=== PATIENT | male | born 1950 | race Caucasian/White ===

== ENCOUNTER 2016-09-22 18:24 | Observation (INO) | payer MEDICARE, OTHER ==
[~2016-09-22] VITALS: Ht 172.7 cm; Wt 97.1 kg
[2016-09-22 18:26] VITALS: BP 150/78; PULSE 126; RESP 12; O2SAT 100
[2016-09-22] MEDS ORDERED: ASPI-973 PO (18:43)
[2016-09-22] MEDS ORDERED: NIFE60TA18 PO (18:43)
[2016-09-22] MEDS ORDERED: DOCU240C41 PO (18:43)
[2016-09-22] MEDS ORDERED: CYCL10TA9 PO (18:43)
--- NOTE | 2016-09-22 18:46 | ED.REPORT ---
HPI-Chest Pain 40 and Over Date of Service Sep 22, 2016 ED Provider: Marisela Johnson MD Pt is a 65 y/o male w/ a hx of hypertension, DM, hyperlipidemia, presenting to the ED with his daughter c/o left-sided CP onset this morning. The patient woke up this morning with chills and diaphoresis and throughout the day began experiencing intermittent episodes of mild upper left chest pain and profound generalized weakness. He had a similar episode 2 weeks ago and saw his PCP who ordered a stress test which is scheduled for next week. He denies peripheral edema, SOB, cough, fever, nasal congestion, nausea, vomiting. He has never had an TX and does not smoke. He is not anticoagulated and takes ASA daily. Nursing Notes Stated Complaint: CHEST PAIN Chief Complaint: Chest Pain Nursing Notes Reviewed: Yes Allergies: Coded Allergies: No Known Allergies (Unverified , 09/22/16) Scheduled Aspirin (Aspirin) 81 Mg Tablet 81 MG PO DAILY Atorvastatin (Lipitor) 40 Mg Tablet 40 MG PO HS Canagliflozin (Invokana) 100 Mg Tablet 100 MG PO HS Docusate Calcium (Stool Softener) 240 Mg Capsule 240 MG PO BID Fenofibrate (Lofibra) 160 Mg Tablet 160 MG PO DAILY Lisinopril (Lisinopril) 40 Mg Tablet 80 MG PO DAILY Loratadine (Claritin) 10 Mg Capsule 10 MG PO DAILY Metformin (Metformin) 850 Mg Tablet 850 MG PO TID Naproxen Na-Diphenhydramin HCl (Aleve Pm Caplet) 220 Mg-25 Mg Tablet 2 EACH PO DAILY Nifedipine (Afeditab Cr) 60 Mg Tablet.er 120 MG PO DAILY [place]-3 Fatty Acids (Fish Oil) 500 Mg Capsule.dr 1,200 MG PO DAILY Oxycodone ER (Oxycontin) 20 Mg Tab.er.12h 20 MG PO BID Sennosides (Senna) 8.6 Mg Tablet 8.6 MG PO DAILY Scheduled PRN Cyclobenzaprine (Cyclobenzaprine) 10 Mg Tablet 10 MG PO HS PRN PRN Spasm Fluticasone Propionate (Flonase Allergy Relief) 50 Mcg/Actuation [place].susp 9.9 ML NS DAILY PRN PRN For Congestion oxyCODONE-Acetaminophen 10-325 mg (oxyCODONE-Acetaminophen 10-325 mg) 1 Each Tablet 1 TABLET PO Q8H PRN PRN For Pain General Time Seen by MD: 18:43 Chief Complaint Chest pain Hx Obtained From: Patient Arrived By: Walk-in Sudden in Onset?: No Onset Occurred: 9 - 12 hours ago Symptom Duration: Intermittent Location: : Chest left Quality: Painful Severity: Current: No pain currently Severity: Maximum: Moderate Past Medical History Past Medical History Hypertension Type II Diabetes Hyperlipidemia Chronic joint and back pain Past Surgical History Appendectomy Smoking History Never Smoker Ambulatory Status Independent Review of Systems Constitutional: Reports: Weakness - generalized, Denies: Chills, Fever Respiratory: Denies: Non-productive cough, Shortness of breath Cardiovascular: Reports: Chest pain, Denies: Edema GI: Denies: Abdominal pain, Nausea, Vomiting Musculoskeletal: Denies: Extremity swelling Complete sys rev & neg: except as marked. Ears / Nose / Throat: Denies: Nasal congestion Physical Exam Initial Vital Signs Vital Signs (First) Date Time Temp Pulse Resp B/P Pulse Ox O2 Delivery O2 Flow Rate FiO2 09/22/16 18:26 36.7 126 12 150/78 100 Initial VS: Reviewed, Vital signs abnormal Head / Eyes: Atraumatic, Normocephalic, PERRL ENT: Mucous membranes moist, Conjunctiva normal, No scleral icterus Neck: Supple, Full range of motion Extremities: Vascular intact, Neuro intact, No swelling, No tenderness Neurologic: Alert, Oriented, Nonfocal Psychiatric: Mood/affect normal, Behavior normal, Normal thought content General/Constitutional: Awake, Alert, No acute distress, Cooperative, Not toxic appearing Respiratory / Chest: Atraumatic, Breath sounds NL, Breath sounds = bilat, No respiratory distress, No rales, No rhonchi, No wheezing, No retractions, No stridor, No chest tenderness, No chest wall deformity, No crepitus Pain is not reproducible Cardiovascular: Regular rhythm, Heart sounds NL, No gallop, No murmurs, No rubs , Cap refill not delayed, Peripheral circulation NL Heart Rate / Rhythm: Positive: Tachycardia Abdomen: Atraumatic, No guarding, No rebound, No distention, No palpable mass Skin: Atraumatic, Color NL, No rash, Warm Color / Condition: Positive: Diaphoresis present Interpretation & Diagnostics Lab Results Interpretation Result Diagram: 09/22/16 1840 09/22/16 1840 Test 09/22/16 18:40 09/22/16 20:35 White Blood Count 16.3th/mm3 (3.8-10.1) Red Blood Count 4.77mil/mm3 (4.40-5.80) Hemoglobin 12.3g/dL (13.8-17.2) Hematocrit 38.2% (41.0-50.0) Mean Corpuscular Volume 80.1fL (81-100) Mean Corpuscular Hemoglobin 25.8pg (27.0-35.0) Mean Corpuscular Hemoglobin Concent 32.2% (32.0-37.0) Red Cell Distribution Width 14.0% (12.3-15.4) Platelet Count 561bil/L (150-400) Neutrophils (%) (Auto) 90.3% (40-74) Lymphocytes (%) (Auto) 6.7% (14-46) Monocytes (%) (Auto) 2.5% (4-12) Eosinophils (%) (Auto) 0.1% (0-5) Basophils (%) (Auto) 0.1% (0-3) Sodium Level 137mEq/L (134-144) Potassium Level 3.9mEq/L (3.5-5.2) Chloride Level 97mEq/L (97-108) Carbon Dioxide Level 20mmol/L (18-29) Blood Urea Nitrogen 60mg/dL (8-27) Creatinine 1.30mg/dL (0.76-1.27) Estimat Glomerular Filtration Rate 59mL/min (>59) Glucose Level 212mg/dL (60-99) Calcium Level 9.2mg/dL (8.5-10.1) Magnesium Level 2.0mg/dL (1.6-2.6) Total Bilirubin 0.4mg/dL (0.0-1.2) Aspartate Amino Transf (AST/SGOT) 10U/L (0-50) Alanine Aminotransferase (ALT/SGPT) 9U/L (0-44) Alkaline Phosphatase 24U/L (25-160) Troponin T < 0.010ug/L (0.0-0.011) Total Protein 6.3g/dL (6.4-8.4) Albumin 3.9g/dL (3.4-5.0) Hold Lane Top Tube Received (Received) Urine Color Yellow (YELLOW) Urine Appearance Clear (CLEAR,HAZY) Urine pH 5.5 (5.0-8.0) Urine Specific Raymond 1.010 (1.003-1.035) Urine Protein Negativemg/dL (NEG,TRACE) Urine Glucose (UA) >1000mg/dL (NEGATIVE) Urine Ketones Tracemg/dL (NEGATIVE) Urine Occult Blood Negative (NEGATIVE) Urine Nitrite Negative (NEGATIVE) Urine Bilirubin Negative (NEGATIVE) Urine Urobilinogen Normalmg/dL (NORMAL) Urine Leukocyte Esterase Negative (NEGATIVE) Urine RBC 0-2/hpf (0-2) Urine WBC 0-5/hpf (0-5) Urine Epithelial Cells Occasional/hpf (NONE-MOD) Urine Crystals None seen (NONE SEEN) Urine Bacteria None/hpf (NONE-FEW) Urine Hyaline Casts None/lpf (NONE) Urine Granular Casts None seen (NONE SEEN) Urine Waxy Casts None seen (NONE SEEN) Urine Red Blood Cell Casts None seen (NONE SEEN) Urine White Blood Cell Casts None seen (NONE SEEN) Urine Mucus None seen (None Seen) Urine Trichomonas None seen (NONE SEEN) Urine Yeast None (NONE SEEN) Urine Culture Reflexed Not indicated Hold Urine Received (Received) ECG Interpretation ECG Interpretation: Sinus tachycardia rate [address] elevated in AvR, 2 boxes without reciprocal depression Time: 18:52 Interpreted by: ED physician Normal ECG Interpretation: No acute ischemic changes X-Ray Chest Interpretation Chest Xray Interpretation: IMPRESSION: No acute disease Dictated by: Yoni Gutiérrez M.D. on 09/22/2016 at 18:54 Approved by: Yoni Gutiérrez M.D. on 09/22/2016 at 18:55 View: Portable, 1 view Interpretation / Wet Read by: Interpret - Radiologist CT Chest Interpretation IMPRESSION: No pulmonary embolism. No acute consolidation Dictated by: Yoni Gutiérrez M.D. on 09/22/2016 at 21:05 Approved by: Yoni Gutiérrez M.D. on 09/22/2016 at 21:08 Study type: CT pulm angiogram Interpretation / Wet Read by: Interpret - Radiologist Re-Eval/Medical Decision Med Decision/Clinical Course 65-year-old male with past medical history of hypertension, diabetes, hyperlipidemia here with chest pain which is now resolved. Patient is tachycardic in the emergency department. Differential diagnosis includes but is not limited to ACS versus pneumonia versus PE versus pleural effusion. PE study is negative for pulmonary embolism. His tachycardia has improved somewhat with a small bolus of fluids. His labs are remarkable for mild anemia , though I do not think this is the cause of his chest pain or tachycardia. He does have a leukocytosis of 16,000 of unknown etiology. He does not have evidence of urinary tract infection. He does not have any evidence of pneumonia on chest x-ray. Given his multiple risk factors for ACS, I have admitted him to the hospital. His EKG does not show any evidence of acute ST elevation at this time. Time of Eval: 21:15 Re-Evaluation/Progress Note: Pt rechecked. Informed pt of need for admission for further cardiac workup. Pt understands and agrees with plan for admission. All questions addressed. Consultation : Referral / Consult Name: Vazquze Duval MD Consulted With: Hospitalist Call Returned at: 21:19 Business Process Engineer: Will see patient, Agrees with eval, Agrees with plan, Accepts admit Counseled Regarding: Diagnosis, Lab results, Need for admission Discharge & Departure Primary Impression: Chest pain Chest pain type: unspecified Qualified Code: R07.9 - Chest pain, unspecified Disposition: ADMITTED TO HOSPITAL Discharge Condition All VS Reviewed: Yes Condition: Stable Referrals: HARISH GUNDERSON (Family) Damion Attestation Portions of this note were transcribed by Phani Aguila. I, Dr. Johnson, personally performed the history, physical exam and medical decision-making; I reviewed and confirmed the accuracy of the information in the transcribed note. Signed by Damion Pantoja, 09/22/161944 copies to: HARISH GUNDERSON Rebecca A MD Sep 22, 2016 18:46 PHANI AGUILA Sep 22, 2016 18:53
[2016-09-22 18:48] LABS: BASOPHILS % (AUTO) 0.1 % (0-3); EOSINOPHILS % (AUTO) 0.1 % (0-5); MONOCYTES % (AUTO) 2.5 % (4-12); Mean Corpuscular Hemoglobin 25.8 pg (27.0-35.0); Mean Corpuscular Volume 80.1 fL (81-100); NEUTROPHILS % (AUTO) 90.3 % (40-74); Platelet Count 561 bil/L (150-400)
[2016-09-22] MEDS ORDERED: METF850T2 PO (18:53)
[2016-09-22] MEDS ORDERED: CANA300T PO (18:53)
[2016-09-22] MEDS ORDERED: OXYC-466 PO (18:53)
[2016-09-22] MEDS ORDERED: OMEG500C PO (18:53)
[2016-09-22] MEDS ORDERED: LORA10CA PO (18:53)
[2016-09-22] MEDS ORDERED: FLUT9.9S NS (18:53)
[2016-09-22] MEDS ORDERED: LIP40 PO (18:53)
[2016-09-22] MEDS ORDERED: SENN-133 PO (18:53)
[2016-09-22] MEDS ORDERED: LISI40TA PO (18:53)
[2016-09-22] MEDS ORDERED: NAPR1TAB25 PO (18:53)
[2016-09-22] MEDS ORDERED: OXYC20TA55 PO (18:53)
[2016-09-22] MEDS ORDERED: FENO160T6 PO (18:53)
[2016-09-22] MEDS ORDERED: CANA100T PO (18:53)
--- NOTE | 2016-09-22 18:57 | DRSVH ---
PROCEDURE: X-RAY CHEST ONE VIEW, PORTABLE ([id number]) INDICATIONS: CHEST PAIN TECHNIQUE: One view of the chest was acquired. COMPARISON: None. FINDINGS: Surgical changes and devices: None. Lungs and pleura: No pleural effusions or pneumothorax. Lungs are clear. Mediastinum: Mediastinal contours appear normal. Heart size is normal. Bones and chest wall: No suspicious bony lesions. Overlying soft tissues appear unremarkable. IMPRESSION: No acute disease Dictated by: Yoni Gutiérrez M.D. on 09/22/2016 at 18:54 Approved by: Yoni Gutiérrez M.D. on 09/22/2016 at 18:55
[2016-09-22 19:28] LABS: TROPONIN T < 0.010 ug/L (0.0-0.011)
[2016-09-22] MEDS ORDERED: 0.9% Sodium Chloride 500 ML IV ONE (20:20)
--- NOTE | 2016-09-22 21:10 | DRSVH ---
PROCEDURE: CT ANGIO CHEST PULMONARY EMBOLISM ([id number]) INDICATIONS: tachy, chest pain TECHNIQUE: After the administration of intravenous contrast, 2 mm thick sections acquired from the pulmonary [facility] [place] to the posterior costophrenic angles. 3-dimensional maximum intensity projection (MIP) coronal a nd sagittal reformats were then acquired through the thorax. For radiation dose reduction, the follo wing was used: automated exposure control, adjustment of mA and/or kV according to patient size. COMPARISON: None. FINDINGS: Image quality: Excellent. Pulmonary arteries: Pulmonary arteries are normal in size, and demonstrate no intraluminal filling d efects to suggest central pulmonary embolism. Lungs and pleura: Lungs are clear. No pleural effusions or pneumothorax. Central and peripheral ai rways are patent. Mediastinum: Heart size is normal, without pericardial effusion. No mediastinal or hilar adenopathy . Thoracic aorta is normal in caliber and enhancement. Esophagus is normal in caliber, without hiat al hernia. Bones and chest wall: No suspicious bony lesions. Ribs and thoracic spine appear intact throughout. Thyroid gland and. No axillary or supraclavicular adenopathy. Abdomen: Visualized upper abdominal solid organs appear normal in the early arterial phase of enhanc ement. IMPRESSION: No pulmonary embolism. No acute consolidation Dictated by: Yoni Gutiérrez M.D. on 09/22/2016 at 21:05 Approved by: Yoni Gutiérrez M.D. on 09/22/2016 at 21:08
[2016-09-22] MEDS ORDERED: Ondansetron 2 mg/mL 2 mL Inj IVPUSH PRN ×2 (21:20→22:20)
[2016-09-22] MEDS ORDERED: Alum-Mag Hydrox-Simeth 30 mL Suspension PO PRN ×2 (21:20→22:20)
[2016-09-22 22:17] VITALS: BP 136/84; PULSE 117; RESP 18; O2SAT 98
[2016-09-22] MEDS ORDERED: Polyethylene Glycol (PEG) 17 Gm Powder PO PRN (22:20)
[2016-09-22] MEDS ORDERED: Senna-Docusate 8.6-50 mg Tablet PO PRN (22:20)
[2016-09-22 22:37] VITALS: BP 122/74; PULSE 106; RESP 18; O2SAT 98
[2016-09-22 22:50] VITALS: PULSE 111
[2016-09-22 23:10] LABS: APPEARANCE,URINE CLEAR (CLEAR,HAZY); COLOR,URINE YELLOW (YELLOW); OCCULT BLOOD,URINE NEGATIVE (NEGATIVE); PH,URINE 5.5 (5.0-8.0); UROBILINOGEN,URINE NORMAL (NORMAL)
[2016-09-22] MEDS ORDERED: 0.9% Sodium Chloride 1,000 ML IV ONE (23:25)
--- NOTE | 2016-09-22 23:34 | PCM.HPMED ---
Subjective Date of Service Sep 22, 2016 Primary Provider: Admitting Physician: Vazquez Duval MD Primary Care Physician: Kristopher Garibay MD Attending Physician: Vazquez Duval MD Chief Complaint: Chest pain History of Present Illness: Patient is a 65-year-old male with type 2 diabetes mellitus, hypertension and dyslipidemia presenting with chest pain. The patient reports waking up this morning with "ice-cold" shaking chills that occurred off-an-on throughout the day. Some time in the afternoon he experienced mild chest pressure without any radiation while at rest. This prompted him to call his daughter at about 17:00 whom then summoned EMS. The patient states that he had similar symptoms, though less severe, about two weeks ago and saw Dr. Valle who ordered a stress test that is scheduled for next week. The patient reports his chest pressure resolved while in the ED. At time of visit, the patient reports feeling weak and fatigued but otherwise denies fever, chills, cough, rhinorrhea, diarrhea, dysuria, skin rash. He endorses some abdominal pain that he says is chronic as a result of chronic pain secondary to arthritis. In the ED, vitals: temp 36.7, HR 126, RR 12 satting 100% on room air, BP 150/ 78. Notable labs: WBC 16.3, BUN 66, creatinine 1.30, blood glucose 212. Troponin <0.010. CT chest angiogram did not identify pulmonary embolism nor acute consolidation. Chest x-ray negative for acute disease. Review of Systems: A comprehensive review of systems was conducted with the patient and found to be negative except as above in the History of Present Illness. Allergies Coded Allergies: No Known Allergies (Unverified , 09/22/16) Home Medications Nifedipine 120mg daily ASA 81mg daily Cyclobenzaprine 10mg PRN Docusate 240mg TID Fenofibrate 160mg daily Fish oil 1200mg daily Fluticasone 50mcg - one spray each nostril daily HCTZ 25mg daily Atorvastatin 40mg QHS Lisinopril 40mg daily Loratadine 10mg daily Metformin 850mg TID Oxycodone 10/325 TID Oxycodone 5/325 BID Aleve 440mg daily Senna 8.6mg daily Invokana 100mg daily PMH Hypertension Dyslipidemia Type 2 diabetes mellitus Chronic pain . Surgical History Appendectomy Family History Mother in her 50s from CVA Father in his 70s from CVA Social History Occupation: Retired;former [employer] Hx Alcohol Use: No (Quit 07/2016; previously 2 shots of vodka daily) Hx Substance Use: No Hx Tobacco Use: Yes Smoking Status: Former Smoker (Quit 1987; smoked 2PPD x 21 years) Living Arrangement: Alone Exam Vital Signs Vital Sign - Last Date Time Temp Pulse Resp B/P Pulse Ox O2 Delivery O2 Flow Rate FiO2 09/22/16 22:17 37 117 18 136/84 98 Room Air Exam General: No acute distress, well-developed, well-nourished, appropriately interactive HEENT: Normocephalic, atraumatic. External ears without defect. Pupils equal, round, and reactive to light. Anicteric sclerae, moist conjunctivae, and no lid lag. Oropharynx free of erythema and cobble stoning with moist mucosa. Neck: Supple. No lymphadenopathy or thyromegaly. Cardiovascular: Tachycardic (HR 104-112) with no murmurs, rubs, or gallops appreciated Pulmonary: Clear to auscultation bilaterally with no crackles, wheezes, or rhonchi. Normal respiratory effort with no use of accessory muscles. Abdomen: Bowel tones present. Soft. Mild tenderness to palpation of epigastrium. No hepatosplenomegaly or masses appreciated. Extremities: No clubbing, cyanosis, edema, or lymphadenopathy appreciated. Skin: Normal temperature, turgor, and texture; no rash, ulcers, or subcutaneous nodules appreciated. Neurological: Cranial nerves grossly intact. Psychiatric: Normal mood and affect. Alert and oriented to person, place, and time. Lab and Diagnostics Result Diagram: 09/22/16183909/22/161839 X-Rays, CTs and MRIs Date of Service: 09/22/161903 PROCEDURE: CT ANGIO CHEST PULMONARY EMBOLISM ([id number]) INDICATIONS: tachy, chest pain TECHNIQUE: After the administration of intravenous contrast, 2 mm thick sections acquired from the pulmonary apices to the posterior costophrenic angles. 3-dimensional maximum intensity projection (MIP) coronal and sagittal reformats were then acquired through the thorax. For radiation dose reduction, the following was used: automated exposure control, adjustment of mA and/or kV according to patient size. COMPARISON: None. FINDINGS: Image quality: Excellent. Pulmonary arteries: Pulmonary arteries are normal in size, and demonstrate no intraluminal filling defects to suggest central pulmonary embolism. Lungs and pleura: Lungs are clear. No pleural effusions or pneumothorax. Central and peripheral airways are patent. Mediastinum: Heart size is normal, without pericardial effusion. No mediastinal or hilar adenopathy. Thoracic aorta is normal in caliber and enhancement. Esophagus is normal in caliber, without hiatal hernia. Bones and chest wall: No suspicious bony lesions. Ribs and thoracic spine appear intact throughout. Thyroid gland and. No axillary or supraclavicular adenopathy. Abdomen: Visualized upper abdominal solid organs appear normal in the early arterial phase of enhancement. IMPRESSION: No pulmonary embolism. No acute consolidation Dictated by: Yoni Gutiérrez M.D. on 09/22/2016 at 21:05 Approved by: Yoni Gutiérrez M.D. on 09/22/2016 at 21:08 Date of Service: 09/22/16 1834 PROCEDURE: X-RAY CHEST ONE VIEW, PORTABLE ([id number]) INDICATIONS: CHEST PAIN TECHNIQUE: One view of the chest was acquired. COMPARISON: None. FINDINGS: Surgical changes and devices: None. Lungs and pleura: No pleural effusions or pneumothorax. Lungs are clear. Mediastinum: Mediastinal contours appear normal. Heart size is normal. Bones and chest wall: No suspicious bony lesions. Overlying soft tissues appear unremarkable. IMPRESSION: No acute disease Dictated by: Yoni Gutiérrez M.D. on 09/22/2016 at 18:54 Approved by: Yoni Gutiérrez M.D. on 09/22/2016 at 18:55 Assessment & Plan Patient is a 65-year-old male with type 2 diabetes mellitus, hypertension and dyslipidemia presenting with chest pain. 1. Acute chest pain. Present on admission -Chest pain resolved at time of visit -ACS risk factors include age, dyslipidemia, diabetes, hypertension -EKG shows sinus tachycardia with HR 118, LAFB -CT chest angio shows no pulmonary embolism -Telemetry -Stress test 2. Acute kidney injury. Present on admission. Active -Unknown acuity and unknown baseline -Creatinine 1.30 on admit -Avoid nephrotoxins -IV fluids -Follow with CMP 3. Leukocytosis. Presumed acute. Present on admission. Active -WBC 16.3 -Patient without focus of infection on history or examination. Chest x-ray and CT chest without infiltrate or consolidation -Possibly reactive to stress and chest pain -UA, blood cultures pending -Follow with CBC 4. Hypertension, chronic. Present on admission -Continue with home antihypertensives - nifedipine. Hold lisinopril due to SHIRAZ 5. Type 2 diabetes mellitus, chronic. Present on admission -Hold metformin, Invokana -Bedside blood glucose checks -Low dose correctional insulin Lispro Patient Status: Patient is admitted under observation status with expected length of stay less than 2 midnights due to risk of adverse event and complexity of treatment plan. VTE Prophylaxis: Sub-Q Heparin (Unfractionated) Resuscitation Status: CPR: Attempt Resuscitation Attending Statement The patient was seen and examined together with Dr. Esquivel on 09/22 and I agree with the history, exam and plan as outlined in the note above. Lenard Esquivel DO Sep 22, 2016 22:45 Vazquez Duval MD Sep 23, 2016 01:43
[2016-09-22] MEDS ORDERED: IBUP200C11 PO (23:39)
[2016-09-23] VITALS (8 sets, daily range): BP systolic 114–154; BP diastolic 65–86; PULSE 70–125; RESP 16–18; O2SAT 99–100
[2016-09-23] MEDS: Heparin 5,000 Unit/mL Inj SUBQ SCH ×3 (01:13→17:27)
[2016-09-23] MEDS ORDERED: Glucose 40% Oral Gel 15 Gm Tube PO PRN (02:10)
--- NOTE | 2016-09-23 03:06 | NUR ---
Admit note: Admitted from the ER, able to ambulate to bed with stand by assist; although states feeling lightheaded when up. Alert and oriented x3. mathematics technician called and reported pt's heartrate increased to the 140s while ambulating to the bathroom; decreased to 100s at rest. Pt agreeable to use urinal at bedside tonight. Denies chest pain/pressure. Oriented to room and call light, instructed to call for assistance.
--- NOTE | 2016-09-23 06:26 | NUR ---
Heart rate: Pt's heart rate decreased to the 80s while asleep. This morning pt stood at the side of the bed, and heart rate increased to the 160s briefly. As pt stood there, heart rate slowly decreased. Back in bed now with rate in the 90s. Denies pain.
[2016-09-23 06:58] LABS: BASOPHILS % (AUTO) 0.1 % (0-3); EOSINOPHILS % (AUTO) 0.1 % (0-5); MONOCYTES % (AUTO) 6.6 % (4-12); Mean Corpuscular Hemoglobin 25.7 pg (27.0-35.0); Mean Corpuscular Volume 79.7 fL (81-100); Platelet Count 354 bil/L (150-400)
[2016-09-23] MEDS: Insulin LISPRO 300 Unit/3 mL Inj SUBQ SCH ×4 (07:30→22:00)
--- NOTE | 2016-09-23 07:50 | NUR ---
Pt off floor for Cardiac Stress Test Tele notified, no s/sx of distress. Pt back in room at 1005.
[2016-09-23] MEDS: 0.9% Sodium Chloride 1,000 ML IV SCH ×2 (10:41→18:59)
[2016-09-23] MEDS: NIFEdipine 30 mg ER24 Tablet PO SCH (10:41)
[2016-09-23] MEDS: oxyCODONE ER 20 mg ER12 Tablet PO SCH ×2 (10:42→20:30)
[2016-09-23] MEDS ORDERED: MeTOProlol XL 25 mg ER24 Tablet PO SCH (11:30)
--- NOTE | 2016-09-23 11:45 | DRSVH ---
PROCEDURE: 1 DAY PHARMACOLOGICAL STRESS TEST Rest and pharmacological stress myocardial perfusion SPECT with gated imaging and ejection fraction RADIOPHARMACEUTICAL: 11.8 mCi Tc-99m tetrafosmin IV at rest and 29.1 mCi Tc-99m tetrafosmin IV at pea k effect of pharmacological stress. A [id number] was performed. INDICATIONS: 65 year-old male with chest pain. The patient has diabetes, hypertension, hyperlipidemi a and family history of coronary artery disease. TECHNIQUE: Radiopharmaceutical was injected at peak stress test, and also at rest. SPECT images wer e obtained. SPECT myocardial perfusion images were displayed in short axis, horizontal long axis, an d vertical long axis views. Gated images were reviewed using [employer] software. COMPARISON: None. CARDIAC STRESS: A pharmacologic stress test was performed under the supervision of an attending staff, using an infus ion of FeedVisoriscan. Hemodynamic data: There is normal blood pressure and heart rate response to pharmacologic stress. Symptoms: The patient denied anginal chest pain. Aminophylline: 100 mg IV EKG: No diagnostic changes of ischemia; no ectopy. FINDINGS: Raw data: There is good myocardial uptake of radiotracer. There are motion artifacts. Intense uptak e in the left hepatic lobe just below the basal inferior wall of the ventricle is noted. Left ventricle function: Gated images demonstrate normal left ventricular wall thickening. No segme ntal wall motion abnormalities. No transient ischemic dilation. Left ventricle resting end diastoli c volume is normal. Left ventricle stress ejection fraction is 50%; normal range is above 45%. Myocardial perfusion: There is a moderate size, mild, fixed perfusion defect in the inferior apex, w hich is resolved on prone imaging, consistent with diaphragmatic attenuation artifact. There is other talavera normal distribution of activity in the right and left ventricular myocardium. No reversible per fusion defects to suggest myocardial ischemia. IMPRESSION: 1. Normal myocardial perfusion images. 2. Diaphragmatic attenuation artifact in the inferior wall. 3. Normal left ventricular volume and systolic function. 4. No chest pain or diagnostic EKG changes for ischemia. PQRS ATTESTATIONS: Measure 322 - Is this imaging test primarily performed on a low-risk surgery patient for preoperative evaluation within 30 days preceding their low-risk non-cardiac surgery? Low-risk surgery is defined as cardiac or myocardial infarction less than 1%, including (but not limited to) endoscopic pr ocedures, superficial procedures, cataract surgery, and excisional breast surgery: Answer: No Measure 323 - Is this imaging test performed primarily for the monitoring of an asymptomatic patient who had percutaneous coronary intervention on the visit date or within 2 years of the visit date? An swer: No Measure 324 - Is this imaging test performed primarily for the initial detection and risk assessment on an asymptomatic, low coronary heart disease patient? Low CHD risk definition = clinicians should consider the maximum number of available patient factors used to estimate risk based on [place] (A TP III criteria), typically age, gender, diabetes, smoking status, and use of blood pressure medicati on, and integrate age appropriate estimates for missing elements, such as LDL or standard blood press ure. Answer: No Dictated by: Kathie Cervantes M.D. on 09/23/2016 at 11:26 Approved by: Kathie Cervantes M.D. on 09/23/2016 at 11:44
[2016-09-23] MEDS: MeTOProlol XL 25 mg ER24 Tablet PO SCH (12:03)
--- NOTE | 2016-09-23 13:06 | DRSVH ---
PROCEDURE: US RENAL SONOGRAM INDICATIONS: SHIRAZ TECHNIQUE: Real-time scanning was performed of the kidneys and bladder, with image documentation. COMPARISON: None. FINDINGS: Kidneys: Kidneys are normal in size. Right kidney measures 12.5 cm long; left kidney measures 10.5 cm long. Right renal cortical thickness is 1.4 cm; left renal cortical thickness is 1.6 cm. Renal c ortical echotexture is normal. No hydronephrosis or nephrolithiasis. No suspicious solid mass lesio ns. Bladder: Urinary bladder decompressed and suboptimally visualized. The rejection of the joint. Miscellaneous: No free pelvic fluid. Echogenic hepatic parenchyma noted. IMPRESSION: 1. Grossly normal appearance of the kidneys. 2. Incidentally noted is increased hepatic echogenicity compatible with diffuse hepatic fatty infiltr ation. Dictated by: Pablo Nance [facility] Interpreted: Kathie Cervantes MD on 09/23/2016 at 13:04 Transcribed by: SINCERE on 09/23/2016 at 13:06 Approved by: Kathie Cervantes M.D. on 09/23/2016 at 16:55
--- NOTE | 2016-09-23 15:58 | NUR ---
Case Management: Explained MARTÍNEZ to patient. He denied questions. Patient signed, copy given to him and original in hard chart. CPerryRNCCM.
--- NOTE | 2016-09-23 16:00 | PCM.PNMED ---
Subjective Date of Service Sep 23, 2016 Subjective Patient is a 65-year-old male with type 2 diabetes mellitus, hypertension and dyslipidemia presenting with chest pain. Patient is seen after his stress test that was completed this morning. Patient feels well, he has a mild sinus headache in which he typically takes Flonase for at home. He has had no recurrence of his chest pain. He is not experiencing any shortness of breath, dizziness, or abdominal pain. Exam Vital Signs Vital Sign - Last Date Time Temp Pulse Resp B/P Pulse Ox O2 Delivery O2 Flow Rate FiO2 09/23/16 06:01 36.9 95 18 145/70 100 Room Air 153/80 142/86 Intake and Output 09/22/16 09/22/16 09/23/16 Cumulative From/Thru 15:00 23:00 07:00 09/22/16 18:26 - 09/23/16 06:46 Intake Total 500 ml 932 ml 1432 ml Output Total 725 ml 725 ml Balance 500 ml 207 ml 707 ml Intake Oral 200 ml 200 ml IV Total 500 ml 732 ml 1232 ml Output Urine Total 725 ml 725 ml Exam General: No acute distress, well-developed, well-nourished, appropriately interactive HEENT: Normocephalic, atraumatic. External ears without defect. Pupils equal, round, and reactive to light. Anicteric sclerae, moist conjunctivae, and no lid lag. Oropharynx free of erythema with moist mucosa. Neck: Supple. No lymphadenopathy or thyromegaly. Cardiovascular: Regular rate of 89 and rhythm with no murmurs, rubs, or gallops appreciated Pulmonary: Clear to auscultation bilaterally with no crackles, wheezes, or rhonchi. Normal respiratory effort with no use of accessory muscles. Abdomen: Bowel tones present. Soft, nontender, obese. No hepatosplenomegaly or masses appreciated. Extremities: No clubbing, cyanosis, edema, or lymphadenopathy appreciated. Skin: Normal temperature, turgor, and texture; no rash, ulcers, or subcutaneous nodules appreciated. Neurological: Cranial nerves grossly intact. Psychiatric: Normal mood and affect. Alert and oriented to person, place, and time. Lab and Diagnostics Result Diagram: 09/23/16 0600 09/23/16 0600 X-Rays, CTs and MRIs Date of Service: 09/22/16 1904 PROCEDURE: CT ANGIO CHEST PULMONARY EMBOLISM ([id number]) INDICATIONS: tachy, chest pain TECHNIQUE: After the administration of intravenous contrast, 2 mm thick sections acquired from the pulmonary apices to the posterior costophrenic angles. 3-dimensional maximum intensity projection (MIP) coronal and sagittal reformats were then acquired through the thorax. For radiation dose reduction, the following was used: automated exposure control, adjustment of mA and/or kV according to patient size. COMPARISON: None. FINDINGS: Image quality: Excellent. Pulmonary arteries: Pulmonary arteries are normal in size, and demonstrate no intraluminal filling defects to suggest central pulmonary embolism. Lungs and pleura: Lungs are clear. No pleural effusions or pneumothorax. Central and peripheral airways are patent. Mediastinum: Heart size is normal, without pericardial effusion. No mediastinal or hilar adenopathy. Thoracic aorta is normal in caliber and enhancement. Esophagus is normal in caliber, without hiatal hernia. Bones and chest wall: No suspicious bony lesions. Ribs and thoracic spine appear intact throughout. Thyroid gland and. No axillary or supraclavicular adenopathy. Abdomen: Visualized upper abdominal solid organs appear normal in the early arterial phase of enhancement. IMPRESSION: No pulmonary embolism. No acute consolidation Dictated by: Yoni Gutiérrez M.D. on 09/22/2016 at 21:05 Approved by: Yoni Gutiérrez M.D. on 09/22/2016 at 21:08 Date of Service: 09/22/16 1158 PROCEDURE: X-RAY CHEST ONE VIEW, PORTABLE ([id number]) INDICATIONS: CHEST PAIN TECHNIQUE: One view of the chest was acquired. COMPARISON: None. FINDINGS: Surgical changes and devices: None. Lungs and pleura: No pleural effusions or pneumothorax. Lungs are clear. Mediastinum: Mediastinal contours appear normal. Heart size is normal. Bones and chest wall: No suspicious bony lesions. Overlying soft tissues appear unremarkable. IMPRESSION: No acute disease Dictated by: Yoni Gutiérrez M.D. on 09/22/2016 at 18:54 Approved by: Yoni Gutiérrez M.D. on 09/22/2016 at 18:55 Additional Diagnostics PROCEDURE: 1 DAY PHARMACOLOGICAL STRESS TEST IMPRESSION: 1. Normal myocardial perfusion images. 2. Diaphragmatic attenuation artifact in the inferior wall. 3. Normal left ventricular volume and systolic function. 4. No chest pain or diagnostic EKG changes for ischemia. Dictated by: Kathie Cervantes M.D. on 09/23/2016 at 11:26 PROCEDURE: US RENAL SONOGRAM IMPRESSION: 1. Grossly normal appearance of the kidneys. 2. Increased hepatic echogenicity noted likely related to fatty infiltration of the liver but other sources of hepatocellular disease cannot be excluded. Recommend clinical correlation. Dictated by: Pablo Nance RRA Interpreted: Kathie Cervantes MD on 09/23/2016 at 13:04 Assessment & Plan Patient is a 65-year-old male with type 2 diabetes mellitus, hypertension and dyslipidemia presenting with chest pain. 1. Acute chest pain. Present on admission -Chest pain resolved shortly after arrival -ACS risk factors include age, dyslipidemia, diabetes, hypertension -EKG shows sinus tachycardia with HR 118, LAFB -CT chest angio shows no pulmonary embolism -Telemetry -Stress test is normal -Echo pending 2. Acute kidney injury. Present on admission. Active -Unknown acuity and unknown baseline -Creatinine 1.30 on admit -Avoid nephrotoxins -IV fluids -Follow with CMP -Renal ultrasound shows grossly normal appearance of kidneys 3. Leukocytosis. Presumed acute. Present on admission. Active -WBC 16.3 decreased to 7.0 within 12 hours -Patient without focus of infection on history or examination. Chest x-ray and CT chest without infiltrate or consolidation -Possibly reactive to stress and chest pain -UA unremarkable, blood cultures pending -Follow with CBC 4. Hypertension, chronic. Present on admission -Continue with home antihypertensives - nifedipine. Hold lisinopril due to SHIRAZ -Metoprolol ER 25mg daily 5. Type 2 diabetes mellitus, chronic. Present on admission -Hold metformin, Invokana -Bedside blood glucose checks -Low dose correctional insulin Lispro Disposition: Patient likely to discharge home tomorrow pending echo results and blood pressure control. Pain Evaluation: Adequate Pain Control VTE Prophylaxis: Sub-Q Heparin (Unfractionated) Resuscitation Status: CPR: Attempt Resuscitation Attending Statement The patient was seen and examined together with Dr. Melvin on 09/23/2016 and I agree with the history, exam and plan as outlined in the note above. Stefanie Melvin DO Sep 23, 2016 07:46 Praneeth Tellez MD Sep 24, 2016 14:09
[2016-09-23] MEDS: oxyCODONE-Acetamin 10-325 mg Tablet PO PRN (17:27)
[2016-09-23] MEDS: Fluticasone 0.05% 15 Spray/2 Gm 16 Gm Nasal Spray NASAL SCH (17:28)
--- NOTE | 2016-09-23 17:53 | DRSVH ---
[facility] [address] [place] [address] Echocardiogram Report Name: JAMIE LANIER Study Date: 09/23/2016 Height: 68 in Hospital Exam Location: [facility] Weight: 214 lb Gender: Male BSA: 2.1 m2 : 1950 Age: 65 yrs BP: 154/77 mmHg Reason For Study: Chest pain Performed By: [facility] Staff Referring Physician: REMINGTON LOYOLA Interpretation Summary The left ventricle is normal in size. There is normal left ventricular wall thickness. The ejection fraction is estimated to be 65-70%. The right ventricle is mildly dilated. Right ventricular systolic function is mildly reduced. Valvular structure and function are within normal limits There is no pericardial effusion. No previous study for comparison. Procedure: A two-dimensional transthoracic echocardiogram with color flow and Doppler was performed. The study quality was technically good. There is no prior echocardiogram noted for this patient. The patient was in normal sinus rhythm during the exam. Left Ventricle: The left ventricle is normal in size. There is normal left ventricular wall thickness. The ejection fraction is estimated to be 65-70%. Spectral Doppler of the mitral valve is reversed, with an E/A wave ratio < 1.0. There is left ventricular diastolic dysfunction. Right Ventricle: The right ventricle is mildly dilated. Right ventricular systolic function is mildly reduced. Atria: The left atrial size is normal. Right atrial size is normal. The interatrial septum is intact with no evidence for an atrial septal defect. Mitral Valve: The mitral valve is normal in structure and function. There is no mitral regurgitation noted. Aortic Valve: The aortic valve is normal in structure and function. No aortic regurgitation is present. Tricuspid Valve: The tricuspid valve is normal in structure and function. There is a trace or physiologic amount of tricuspid regurgitation. Pulmonic Valve: The pulmonic valve is normal in structure and function. There is trace pulmonic regurgitation. Great Vessels: The aortic root is normal size. The dimensions of the ascending aorta are normal. The pulmonary artery is normal size. The IVC is of normal diameter and collapses greater than 50% with a sniff. This suggests a low right atrial pressure of 3 mm Hg. Pericardium/ Pleura There is no pericardial effusion. There is no pleural effusion. MMode/2D Measurements & Calculations LVIDd: 4.7 cm LA dimension: 4.0 cm RA long axis LVOT diam LVIDs: 3.5 cm FS: 24.9 % LA A2 area: 18.1 cm RA area AoV Opening EPSS: 0.70 cm LA A4 area: 16.3 cm IVSd: 1.00 cm LA length (vol): 4.9 cm : 17.9 cm Ao root diam LVPWd: 0.98 cm LA vol: 51.5 ml RA vol: 46.7 ml: 3.3 cm LA vol index RA : 22.2 mm/ : 24.5 ml/m2 RVDd major : 6.9 cm LV fleming. diameter/BSA LV sys. diameter/BSA RVD1 (basal) RVD2 (mid) (cm/m^2): 2.2 (cm/m^2): 1.7 : 3.1 cm TAPSE: 1.9 cm Doppler Measurements & Calculations Ao V2 max MV E max alli MV E/A: 0.86 PA V2 max : 142.0 cm/sec : 70.5 cm/sec Med Peak E' Alli : 88.9 cm/sec Ao max PG MV A max alli PA mean PG : 8.1 mmHg : 81.7 cm/sec E/E' med: 8.8 Ao mean PG MV P1/2t: 53.8 msec Lat Peak E' Alli PA Accel Time : 0.10 sec LVOT Max Alli E/E' lat: 7.2 : 117.3 cm/sec E/e' average: 8.0 ARTUR(I,D): 2.6 cm sev ratio MV dec time MV P1/2t max alli Ao V2 mean LV V1 max PG : 0.19 sec : 92.8 cm/sec Ao V2 VTI: 24.7 cm LV V1 VTI MVA(P1/2t): 4.1 cm2 : 18.3 cm ARTUR(V,D): 2.9 cm2 PA V2 mean ARTUR indexed to BSA : 58.0 cm/sec (cm^2/m^2): 1.2 Reading Physician:05:53 PM
--- NOTE | 2016-09-23 22:34 | NUR ---
Dayshift Pt had several heart related tests. Followed direction to limit activity, stay in bed, stand at bedside for urinal use. No near falls, BG monitored, pain controlled. No significant events during shift.
[2016-09-24] MEDS: oxyCODONE ER 20 mg ER12 Tablet PO SCH ×2 (00:13→07:57)
[2016-09-24] MEDS: Heparin 5,000 Unit/mL Inj SUBQ SCH ×2 (00:15→07:58)
[2016-09-24 00:44] VITALS: BP 143/76; PULSE 72; RESP 16; O2SAT 99
--- NOTE | 2016-09-24 00:47 | NUR ---
Pain Pt refused 2030 dosage of Oxycontin because he said he was not in pain at that time. Pt c/o hip pain and requested Oxycontin at 0000. Emar updated and the medication was given without issues noted at this time. Will continue to monitor for pain/discomfort and tx.
[2016-09-24] MEDS: 0.9% Sodium Chloride 1,000 ML IV SCH ×2 (01:29→10:26)
[2016-09-24 05:52] VITALS: BP 136/72; PULSE 72; RESP 16; O2SAT 99
[2016-09-24 06:21] LABS: BASOPHILS % (AUTO) 0.5 % (0-3); EOSINOPHILS % (AUTO) 3.4 % (0-5); MONOCYTES % (AUTO) 7.3 % (4-12); Mean Corpuscular Hemoglobin 25.9 pg (27.0-35.0); Mean Corpuscular Volume 80.4 fL (81-100); NEUTROPHILS % (AUTO) 59.7 % (40-74); Platelet Count 244 bil/L (150-400)
[2016-09-24 06:45] LABS: TROPONIN T 0.01 ug/L (0.0-0.011)
[2016-09-24] MEDS: Insulin LISPRO 300 Unit/3 mL Inj SUBQ SCH ×2 (07:45→11:31)
[2016-09-24] MEDS: Fluticasone 0.05% 15 Spray/2 Gm 16 Gm Nasal Spray NASAL SCH (07:55)
[2016-09-24] MEDS: NIFEdipine 30 mg ER24 Tablet PO SCH (07:56)
[2016-09-24] MEDS: MeTOProlol XL 25 mg ER24 Tablet PO SCH (07:56)
[2016-09-24] MEDS ORDERED: MeTOProlol XL 25 mg ER24 Tablet PO SCH (08:30)
[2016-09-24 10:10] VITALS: BP 135/76; PULSE 77; RESP 16; O2SAT 100
[2016-09-24 10:16] VITALS: PULSE 76
[2016-09-24] MEDS: oxyCODONE-Acetamin 10-325 mg Tablet PO PRN (10:26)
[2016-09-24] MEDS ORDERED: METO25TA99 PO (12:10)
--- NOTE | 2016-09-24 12:24 | PCM.DIMED ---
Stefanie Melvin DO 09/24/16 1224: Discharge Instructions Date of Service Sep 24, 2016 Dates of Hospitalization Sep 22, 2016 at 22:11 Discharge Diagnosis Discharge Diagnosis 1. Chest pain 2. Acute kidney injury 3. Leukocytosis 4. Hypertension 5. Diabetes mellitus Medication Instructions Take your previously prescribed medications as directed. We added metoprolol ER. Take this daily. Test Results Echocardiogram shows left ventricular ejection fraction is estimated to be 65-70 %. Mild right ventricular dilation. Pharmacologic stress test shows normal myocardial perfusion images. Grossly normal appearance of kidneys on retroperitoneal ultrasound Diet Heart Healthy Activity No restrictions Call your provider Fever or Chills, Shortness of breath, Chest pain, Vomitting, Excessive diarrhea , Weakness (unilateral) Patient Instructions Return to normal activity. Your kidney function has improved. He drink plenty of water over the next couple of days. Please see your PCP for hospital follow up. Follow-up plan Follow-up with your PCP within the next 2 weeks. We recommend follow-up of hemoglobin and hematocrit levels as well as sodium and chloride levels Follow-up Provider: Kristopher Garibay MD Follow-up with PCP in: 2 weeks Praneeth Tellez MD 09/25/16 1253: Stefanie Melvin DO Sep 24, 2016 12:24 Praneeth Tellez MD Sep 25, 2016 12:53
--- NOTE | 2016-09-24 12:26 | NUR ---
Social Work Initial Assessment: SW met with patient at bedside to discuss discharge plan. Patient is a 65 year old male admitted under observation status on 09/22/16 for chest pain. Patient payer as Medicare and [employer]. Patient has assisted disability and no VA benefits. Patient PCP as MD Garibay. Patient resides in [place] independently. Patient states emergency contact as daughter Sanjuana and Son who resides in [place] and check in to assist with needs. [facility]. Patient has no previous HHC, SNF, or AD history. Patient was provided with paperwork for completion. Patient states having a CPAP for use at home. Patient states being independent with needs at baseline and states having no identified discharge needs at this time. Echo pending. SW to follow pending clinical course. PLAN: Home independently via POV. No anticipated discharge needs at this time. SW will continue to follow pending further clinical course Fidencio LUJAN Addendum: 09/24/16 at 1233 by RYAN SALOMON Amended: Links added. Addendum: 09/24/16 at 1237 by RYAN SALOMON Order for discharge acknowledged. Plan remains as home no needs. Fidencio Rosales
--- NOTE | 2016-09-24 14:19 | NUR ---
Discharge Discharge paperwork, care notes, medications reviewed with disclaimer signed. IV DCd intact, Tele removed, all belongings with pt. No s/sx of distress. Offered to take pt down in WC but refused, pt requests to walk out with friend who will drive home.
--- NOTE | 2016-09-24 18:07 | PCM.DC.MED ---
Discharge Summary Date of Service Sep 24, 2016 Dates of Hospitalization Date of Hospital Admission Sep 22, 2016 at 22:11 Date of Discharge: Sep 24, 2016 Providers: Admitting Physician: Vazquez Duval MD Primary Care Physician: Kristopher Garibay MD Attending Physician: Vazquez Duval MD Diagnosis at Time of Discharge Diagnosis at Time of Discharge 1. Chest pain 2. Acute kidney injury 3. Leukocytosis 4. Hypertension 5. Diabetes mellitus Procedures XRay, CTs & MRIs PROCEDURE: CT ANGIO CHEST PULMONARY EMBOLISM ([id number]) INDICATIONS: tachy, chest pain TECHNIQUE: After the administration of intravenous contrast, 2 mm thick sections acquired from the pulmonary apices to the posterior costophrenic angles. 3-dimensional maximum intensity projection (MIP) coronal and sagittal reformats were then acquired through the thorax. For radiation dose reduction, the following was used: automated exposure control, adjustment of mA and/or kV according to patient size. COMPARISON: None. FINDINGS: Image quality: Excellent. Pulmonary arteries: Pulmonary arteries are normal in size, and demonstrate no intraluminal filling defects to suggest central pulmonary embolism. Lungs and pleura: Lungs are clear. No pleural effusions or pneumothorax. Central and peripheral airways are patent. Mediastinum: Heart size is normal, without pericardial effusion. No mediastinal or hilar adenopathy. Thoracic aorta is normal in caliber and enhancement. Esophagus is normal in caliber, without hiatal hernia. Bones and chest wall: No suspicious bony lesions. Ribs and thoracic spine appear intact throughout. Thyroid gland and. No axillary or supraclavicular adenopathy. Abdomen: Visualized upper abdominal solid organs appear normal in the early arterial phase of enhancement. IMPRESSION: No pulmonary embolism. No acute consolidation Dictated by: Yoni Gutiérrez M.D. on 09/22/2016 at 21:05 Approved by: Yoni Gutiérrez M.D. on 09/22/2016 at 21:08 PROCEDURE: X-RAY CHEST ONE VIEW, PORTABLE ([id number]) INDICATIONS: CHEST PAIN TECHNIQUE: One view of the chest was acquired. COMPARISON: None. FINDINGS: Surgical changes and devices: None. Lungs and pleura: No pleural effusions or pneumothorax. Lungs are clear. Mediastinum: Mediastinal contours appear normal. Heart size is normal. Bones and chest wall: No suspicious bony lesions. Overlying soft tissues appear unremarkable. IMPRESSION: No acute disease Dictated by: Yoni Gutiérrez M.D. on 09/22/2016 at 18:54 Approved by: Yoni Gutiérrez M.D. on 09/22/2016 at 18:55 Cardiac Echo Impression Echocardiogram Report Interpretation Summary The left ventricle is normal in size. There is normal left ventricular wall thickness. The ejection fraction is estimated to be 65-70%. The right ventricle is mildly dilated. Right ventricular systolic function is mildly reduced. Valvular structure and function are within normal limits There is no pericardial effusion. No previous study for comparison. Other Diagnostics PROCEDURE: 1 DAY PHARMACOLOGICAL STRESS TEST IMPRESSION: 1. Normal myocardial perfusion images. 2. Diaphragmatic attenuation artifact in the inferior wall. 3. Normal left ventricular volume and systolic function. 4. No chest pain or diagnostic EKG changes for ischemia. Dictated by: Kathie Cervantes M.D. on 09/23/2016 at 11:26 PROCEDURE: US RENAL SONOGRAM IMPRESSION: 1. Grossly normal appearance of the kidneys. 2. Increased hepatic echogenicity noted likely related to fatty infiltration of the liver but other sources of hepatocellular disease cannot be excluded. Recommend clinical correlation. Dictated by: Pablo Nance [facility] Interpreted: Kathie Cervantes MD on 09/23/2016 at 13:04 Brief History History of present illness on admission by Dr. Esquivel: Patient is a 65-year-old male with type 2 diabetes mellitus, hypertension and dyslipidemia presenting with chest pain. The patient reports waking up this morning with "ice-cold" shaking chills that occurred off-an-on throughout the day. Some time in the afternoon he experienced mild chest pressure without any radiation while at rest. This prompted him to call his daughter at about 17:00 whom then summoned EMS. The patient states that he had similar symptoms, though less severe, about two weeks ago and saw Dr. Valle who ordered a stress test that is scheduled for next week. The patient reports his chest pressure resolved while in the ED. At time of visit, the patient reports feeling weak and fatigued but otherwise denies fever, chills, cough, rhinorrhea, diarrhea, dysuria, skin rash. He endorses some abdominal pain that he says is chronic as a result of chronic pain secondary to arthritis. In the ED, vitals: temp 36.7, HR 126, RR 12 satting 100% on room air, BP 150/ 78. Notable labs: WBC 16.3, BUN 66, creatinine 1.30, blood glucose 212. Troponin <0.010. CT chest angiogram did not identify pulmonary embolism nor acute consolidation. Chest x-ray negative for acute disease. Hospital Course Patient is a 65-year-old male with type 2 diabetes mellitus, hypertension and dyslipidemia presenting with chest pain. 1. Acute chest pain. Present on admission -Chest pain resolved shortly after arrival -ACS risk factors include age, dyslipidemia, diabetes, hypertension -EKG shows sinus tachycardia with HR 118, LAFB -CT chest angio shows no pulmonary embolism -Stress test is normal -Echo normal left ventricle with ejection fraction estimated to be 65-70%, right ventricle mildly dilated with right ventricular systolic function mildly reduced. 2. Acute kidney injury. Present on admission. Active -Unknown acuity and unknown baseline -Creatinine 1.30 on admit, decreased to 1.20 on day of discharge -IV fluids given -Renal ultrasound shows grossly normal appearance of kidneys 3. Leukocytosis. Presumed acute. Present on admission. Resolved -WBC 16.3 decreased to 7.0 within 12 hours -Patient without focus of infection on history or examination. Chest x-ray and CT chest without infiltrate or consolidation -Possibly reactive to stress and chest pain -UA unremarkable, blood cultures show no growth after 24 hours 4. Hypertension, chronic. Present on admission -Continue with home antihypertensives - nifedipine. Hold lisinopril due to SHIRAZ -Metoprolol ER 25mg daily 5. Type 2 diabetes mellitus, chronic. Present on admission -metformin, Invokana held during stay -Low dose correctional insulin Lispro was available Patient discharged home in stable condition. Exam Vital Signs (Last) Date Time Temp Pulse Resp B/P Pulse Ox O2 Delivery O2 Flow Rate FiO2 09/24/16 10:16 76 09/24/16 10:10 36.7 16 135/76 100 Room Air Exam General: No acute distress, well-developed, well-nourished, appropriately interactive HEENT: Normocephalic, atraumatic. External ears without defect. Pupils equal, round, and reactive to light. Anicteric sclerae, moist conjunctivae, and no lid lag. Oropharynx free of erythema with moist mucosa. Neck: Supple. No lymphadenopathy or thyromegaly. Cardiovascular: Regular rate and rhythm with no murmurs, rubs, or gallops appreciated Pulmonary: Clear to auscultation bilaterally with no crackles, wheezes, or rhonchi. Normal respiratory effort with no use of accessory muscles. Abdomen: Bowel tones present. Soft, nontender, obese. No hepatosplenomegaly or masses appreciated. Extremities: No clubbing, cyanosis, edema, or lymphadenopathy appreciated. Skin: Normal temperature, turgor, and texture; no rash, ulcers, or subcutaneous nodules appreciated. Neurological: Cranial nerves grossly intact. No gait impairment. Psychiatric: Normal mood and affect. Alert and oriented to person, place, and time. Test 09/22/16 18:40 09/22/16 20:35 09/24/16 05:45 Magnesium Level 2.0mg/dL (1.6-2.6) Hold Lane Top Tube Received (Received) Urine Color Yellow (YELLOW) Urine Appearance Clear (CLEAR,HAZY) Urine pH 5.5 (5.0-8.0) Urine Specific [place] 1.010 (1.003-1.035) Urine Protein Negativemg/dL (NEG,TRACE) Urine Glucose (UA) >1000mg/dL (NEGATIVE) Urine Ketones Tracemg/dL (NEGATIVE) Urine Occult Blood Negative (NEGATIVE) Urine Nitrite Negative (NEGATIVE) Urine Bilirubin Negative (NEGATIVE) Urine Urobilinogen Normalmg/dL (NORMAL) Urine Leukocyte Esterase Negative (NEGATIVE) Urine RBC 0-2/hpf (0-2) Urine WBC 0-5/hpf (0-5) Urine Epithelial Cells Occasional/hpf (NONE-MOD) Urine Crystals None seen (NONE SEEN) Urine Bacteria None/hpf (NONE-FEW) Urine Hyaline Casts None/lpf (NONE) Urine Granular Casts None seen (NONE SEEN) Urine Waxy Casts None seen (NONE SEEN) Urine Red Blood Cell Casts None seen (NONE SEEN) Urine White Blood Cell Casts None seen (NONE SEEN) Urine Mucus None seen (None Seen) Urine Trichomonas None seen (NONE SEEN) Urine Yeast None (NONE SEEN) Urine Culture Reflexed Not indicated Hold Urine Received (Received) White Blood Count 3.8th/mm3 (3.8-10.1) Red Blood Count 3.17mil/mm3 (4.40-5.80) Hemoglobin 8.2g/dL (13.8-17.2) Hematocrit 25.5% (41.0-50.0) Mean Corpuscular Volume 80.4fL (81-100) Mean Corpuscular Hemoglobin 25.9pg (27.0-35.0) Mean Corpuscular Hemoglobin Concent 32.2% (32.0-37.0) Red Cell Distribution Width 13.8% (12.3-15.4) Platelet Count 244bil/L (150-400) Neutrophils (%) (Auto) 59.7% (40-74) Lymphocytes (%) (Auto) 28.8% (14-46) Monocytes (%) (Auto) 7.3% (4-12) Eosinophils (%) (Auto) 3.4% (0-5) Basophils (%) (Auto) 0.5% (0-3) Sodium Level 145mEq/L (134-144) Potassium Level 3.6mEq/L (3.5-5.2) Chloride Level 109mEq/L (97-108) Carbon Dioxide Level 26mmol/L (18-29) Blood Urea Nitrogen 35mg/dL (8-27) Creatinine 1.20mg/dL (0.76-1.27) Estimat Glomerular Filtration Rate 64mL/min (>59) Glucose Level 131mg/dL (60-99) Calcium Level 8.5mg/dL (8.5-10.1) Total Bilirubin 0.2mg/dL (0.0-1.2) Aspartate Amino Transf (AST/SGOT) 12U/L (0-50) Alanine Aminotransferase (ALT/SGPT) 8U/L (0-44) Alkaline Phosphatase 16U/L (25-160) Troponin T 0.010ug/L (0.0-0.011) Total Protein 5.2g/dL (6.4-8.4) Albumin 3.4g/dL (3.4-5.0) Procalcitonin 0.13ng/mL (0.00-0.08) Discharge Medications Discharge Medications Aspirin (Aspirin) 81 Mg Tablet 81 MG PO DAILY (Reported) Atorvastatin (Lipitor) 40 Mg Tablet 40 MG PO HS (Reported) Canagliflozin (Invokana) 100 Mg Tablet 100 MG PO HS (Reported) Docusate Calcium (Stool Softener) 240 Mg Capsule 240 MG PO BID (Reported) Fenofibrate (Lofibra) 160 Mg Tablet 160 MG PO DAILY (Reported) Lisinopril (Lisinopril) 40 Mg Tablet 80 MG PO DAILY (Reported) Loratadine (Claritin) 10 Mg Capsule 10 MG PO DAILY (Reported) Metformin (Metformin) 850 Mg Tablet 850 MG PO TID (Reported) Metoprolol Succinate ER (Metoprolol Succinate ER) 25 Mg Tab.er.24h 25 MG PO DAILY Prescribed by: HERMELINDA ZHANG DO Naproxen Na-Diphenhydramin HCl (Aleve Pm Caplet) 220 Mg-25 Mg Tablet 2 EACH PO DAILY (Reported) Nifedipine (Afeditab Cr) 60 Mg Tablet.er 120 MG PO DAILY (Reported) Letart-3 Fatty Acids (Fish Oil) 500 Mg Capsule.dr 1,200 MG PO DAILY (Reported) Oxycodone ER (Oxycontin) 20 Mg Tab.er.12h 20 MG PO BID (Reported) Sennosides (Senna) 8.6 Mg Tablet 8.6 MG PO DAILY (Reported) As needed Cyclobenzaprine (Cyclobenzaprine) 10 Mg Tablet 10 MG PO HS PRN PRN Spasm ( Reported) Fluticasone Propionate (Flonase Allergy Relief) 50 Mcg/Actuation [place].susp 9.9 ML NS DAILY PRN PRN For Congestion (Reported) oxyCODONE-Acetaminophen 10-325 mg (oxyCODONE-Acetaminophen 10-325 mg) 1 Each Tablet 1 TABLET PO Q8H PRN PRN For Pain (Reported) Additional med instructions Take your previously prescribed medications as directed. We added metoprolol ER. Take this daily. Followup Plan Disposition: Discharge home Follow-up plan Follow-up with your PCP within the next 2 weeks. We recommend follow-up of hemoglobin and hematocrit levels as well as sodium and chloride levels Discharge Diet: Heart Healthy Discharge Activity: No restrictions Patient Instructions Return to normal activity. Your kidney function has improved. He drink plenty of water over the next couple of days. Please see your PCP for hospital follow up. Follow-up Provider: Kristopher Garibay MD Follow-up with PCP in: 2 weeks Attending Statement The patient was seen and examined together with Dr. Zhang on 09/24/2016 and I agree with the history, exam and plan as outlined in the note above. copies to: Kristopher Garibay MD, Erika R DO Sep 24, 2016 18:07 Praneeth Tellez MD Sep 25, 2016 12:53
== END 2016-09-24 14:15 | disposition home or self-care (01) ==
LOC: SED 18:24 → MPC 22:11
PROVIDERS: ADMIT Hospitalist; ATTEND Hospitalist
DX: R07.89 Other chest pain (principal); N17.9 Acute kidney failure, unspecified; D72.829 Elevated white blood cell count, unspecified; R00.0 Tachycardia, unspecified; E11.9 Type 2 diabetes mellitus without complications; I10 Essential (primary) hypertension; E78.5 Hyperlipidemia, unspecified; G89.29 Other chronic pain; Z79.82 Long term (current) use of aspirin; Z79.899 Other long term (current) drug therapy; Z87.891 Personal history of nicotine dependence
CPT/HCPCS: 36415; 71010; 71275; 76770; 78452; 80053; 81000; 82308; 82948; 83735; 84484; 85025; 87040; 93005; 93017; 96360; 99285; A9502; C8929; G0378; J0280; J1644; J1815; J2785; J7030; J7040; Q9967